=== PATIENT | female | born 2000 | race Two or more races ===

== ENCOUNTER 2022-11-04 13:28 | Emergency (ER) | payer SELFPAY ==
[2022-11-04] MEDS ORDERED: TDAP (DIPHTH,PERTUSS(ACELL),TET VAC) 0.5 ML VIAL IMVAC ONE (14:42)
[2022-11-04] MEDS ORDERED: LIDOCAINE 1% 20 ML MDV ONE (14:42)
[2022-11-04 14:43] LABS: Absolute Lymphocytes (CBC) 1.9 K/uL (0.7-4.9); Lymphocytes % 19.8 % (15.3-44.8); MCV 87.1 fL (80-100); MPV 8.3 fL (7.6-11.3); Platelets 361 thou/uL (152-406); RBC Red Blood Cell Count 5.62 M/uL (3.86-4.86)
[2022-11-04 14:45] LABS: Protime INR 0.92
[2022-11-04 15:00] LABS: Barbiturates NEGATIVE (NEGATIVE); Benzodiazepines NEGATIVE (NEGATIVE); Cocaine NEGATIVE (NEGATIVE); METHAMPHETAM NEGATIVE (NEGATIVE); Methadone NEGATIVE (NEGATIVE); Opiates NEGATIVE (NEGATIVE); Phencyclidine NEGATIVE (NEGATIVE); THC Cannibis NEGATIVE (NEGATIVE)
[2022-11-04 16:53] LABS: ALT/SGPT 26 U/L (13-56); AST/SGOT 17 U/L (15-37); Albumin 3.8 g/dL (3.4-5.0); Alkaline Phosphatase 104 U/L (45-117); BUN Blood Urea Nitrogen 11 mg/dL (7-18); Bicarbonate 22 mEq/L (21-32); Bilirubin Total 0.3 mg/dL (0.2-1.0); Glomerular Filtration Rate 84 ml/min (=/>90); Glucose Level 307 mg/dL (74-106); Potassium 3.7 mEq/L (3.5-5.1); Protein, Total 8.8 g/dL (6.4-8.2); Sodium Level 132 mEq/L (136-145)
[2022-11-04 16:54] LABS: Bilirubin Direct < 0.1 mg/dL (0-0.2); Bilirubin Indirect, Calculated ND mg/dL (0.2-0.8)
--- NOTE | 2022-11-04 18:07 | ER ---
Nurse's Notes [facility] Name: Sean Lazcano Age: 22 yrs Sex: Female : 2000 Arrival Date: 11/04/2022 Time: 13:28 Bed 15 Private MD: Diagnosis: Major depressive disorder, single episode, severe without psychotic features;Arm Laceration Left/ Open wound of forearm-s/p repair Presentation: 11/04 13:28 Chief complaint: EMS states: "Toned out for using a kitchen knife to cut her left mb9 forearm after getting into argument with sister. Pt has history of cutting self. Pt denies wanting to kill self.". 13:28 Coronavirus screen: Vaccine status: Patient reports being unvaccinated. Ebola Screen: [facility] No symptoms or risks identified at this time. Initial Sepsis Screen: Does the patient meet any 2 criteria? No. Patient's initial sepsis screen is negative. Does the patient have a suspected source of infection? No. Patient's initial sepsis screen is negative. Risk Assessment: Do you want to hurt yourself or someone else? Patient reports desire/thoughts of hurting themselves or someone else. Provider notified. Onset of symptoms was November 04, 2022. 13:28 Method Of Arrival: EMS: [facility] 13:28 Acuity: KRISTY 2 mb9 Triage Assessment: 13:49 General: Appears uncomfortable, Behavior is anxious, crying. Pain: Denies pain. Neuro: mb9 [place] Agitation-Sedation Scale (RASS): 0 - Alert and Calm Level of Consciousness is awake, alert, obeys commands, Oriented to person, place, time, situation, Appropriate for age. Cardiovascular: Patient's skin is warm and dry. Respiratory: Airway is patent Respiratory effort is even, unlabored, Respiratory pattern is regular, symmetrical. GI: No signs and/or symptoms were reported involving the gastrointestinal system. : No signs and/or symptoms were reported regarding the genitourinary system. Derm:. Musculoskeletal: Range of motion: intact in all extremities. Injury Description: Laceration sustained to left arm is full thickness, 2.6 to 7.5 cm long, bleeding moderately. 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 - Social history:: Smoking status: Patient denies any tobacco usage or history of. Screenin:48 [facility] ED Fall Risk Assessment (Adult) History of falling in the last 3 months, mb9 including since admission No falls in past 3 months (0 pts) Confusion or Disorientation No (0 pts) Intoxicated or Sedated No (0 pts) Impaired Gait No (0 pts) Mobility Assist Device Used No (0 pt) Altered Elimination No (0 pt) Score/Fall Risk Level 0 - 2 = Low Risk Oriented to surroundings, Maintained a safe environment, Educated pt \\T\\ family on fall prevention, incl call for assistance when getting out of bed. Abuse screen: Denies threats or abuse. Nutritional screening: No deficits noted. Tuberculosis screening: No symptoms or risk factors identified. Assessment: 13:48 Reassessment: [place] [facility] at bedside. mb9 14:28 Reassessment: Patient and/or family updated on plan of care and expected duration. Pain mb9 level reassessed. Patient is alert, oriented x 3, equal unlabored respirations, skin warm/dry/pink. [place] [facility] at bedside. SI precautions in place. 15:28 Reassessment: Patient and/or family updated on plan of care and expected duration. Pain mb9 level reassessed. Patient is alert, oriented x 3, equal unlabored respirations, skin warm/dry/pink. [place] [facility] at bedside. SI precautions in place. 15:31 Reassessment: Family at bedside. mb9 16:28 Reassessment: Patient and/or family updated on plan of care and expected duration. Pain mb9 level reassessed. Patient is alert, oriented x 3, equal unlabored respirations, skin warm/dry/pink. SI precautions in place. 16:42 Reassessment: [facility] at bedside. mb9 17:28 Reassessment: Patient and/or family updated on plan of care and expected duration. Pain mb9 level reassessed. Patient is alert, oriented x 3, equal unlabored respirations, skin warm/dry/pink. SI precautions in place. 18:28 Reassessment: Patient and/or family updated on plan of care and expected duration. Pain mb9 level reassessed. Patient is alert, oriented x 3, equal unlabored respirations, skin warm/dry/pink. SI precautions in place. 18:44 Reassessment: Nurse to nurse with Krista from [facility]. mb9 19:28 Reassessment: Patient and/or family updated on plan of care and expected duration. Pain mb9 level reassessed. Patient is alert, oriented x 3, equal unlabored respirations, skin warm/dry/pink. SI precautions in place. Sitter at bedside. 20:28 Reassessment: Patient and/or family updated on plan of care and expected duration. Pain mb9 level reassessed. Patient is alert, oriented x 3, equal unlabored respirations, skin warm/dry/pink. SI precautions in place. Sitter at bedside. 21:28 Reassessment: Patient and/or family updated on plan of care and expected duration. Pain mb9 level reassessed. Patient is alert, oriented x 3, equal unlabored respirations, skin warm/dry/pink. SI precautions in place. Sitter at bedside. 22:28 Reassessment: SI precautions in place. Sitter at bedside. mb9 23:28 Reassessment: Patient and/or family updated on plan of care and expected duration. Pain mb9 level reassessed. Patient is alert, oriented x 3, equal unlabored respirations, skin warm/dry/pink. SI precautions in place. Sitter at bedside. 11/05 07:00 Reassessment: Patient appears in no apparent distress at this time. Patient and/or hb family updated on plan of care and expected duration. Pain level reassessed. Patient is alert, oriented x 3, equal unlabored respirations, skin warm/dry/pink. Suicide precautions in place, sitter present. See paper chart for safety checks/observations. Awaiting acceptance at psych facility at this time. 09:00 Reassessment: Patient appears in no apparent distress at this time. No changes from previously documented assessment. Patient and/or family updated on plan of care and expected duration. Pain level reassessed. 11:00 Reassessment: Patient appears in no apparent distress at this time. No changes from previously documented assessment. Sitter remains in place. 12:42 Reassessment: Pt awake and alert, in no apparent distress, sitting upright eating lunch hb at this time. 14:35 Reassessment: Patient appears in no apparent distress at this time. Patient and/or hb family updated on plan of care and expected duration. Pain level reassessed. Vital Signs: 11/04 13:28 BP 141 / 98; Pulse 112; Resp 18; Temp 98.2; Pulse Ox 100% on R/A; Weight 83.91 kg; mb9 Height 5 ft. 7 in. ; Pain 0/10; 16:43 BP 138 / 74; Pulse 88; Resp 16; Pulse Ox 100% on R/A; mb9 11/05 11:50 BP 123 / 80; Pulse 91; Resp 16; Temp 97; Pulse Ox 99% ; Pain 0/10; sm8 11/04 13:28 Body Mass Index 28.97 (83.91 kg, 170.18 cm) [facility] 11/04 13:28 Pain Scale: Adult [facility] 11/05 11:50 Pain Scale: Adult 8 ED Course: 11/04 13:28 Patient arrived in ED. mb9 13:38 Cindy Parisi MD is Attending Physician. cp3 13:44 Fe Gonzalez, RN is Primary Nurse. mb9 13:44 Arm band placed on. mb9 13:46 Triage completed. mb9 13:49 Bed in low position. [place] [employer] at bedside. SI precautions in place. mb9 14:20 Urine collected: clean catch specimen, clear, EKG done, by ED staff, reviewed by Fe Gonzalez RN. Inserted saline lock: 22 gauge in right hand, using aseptic technique. 14:24 Acetaminophen Sent. mb9 14:24 Basic Metabolic Panel Sent. mb9 14:24 CBC with Diff Sent. mb9 14:24 ETOH Level Sent. mb9 14:24 Hepatic Function Sent. mb9 14:24 PT-INR Sent. mb9 14:24 Ptt, Activated Sent. mb9 15:00 Assist provider with laceration repair on left arm that was between 2.6 to 7.5 cm using mb9 autumn. Set up tray. Performed by Cindy Parisi MD Dressed with 4X4s, Patient tolerated well. 15:19 called the [facility] crisis line/ Mercedes will page out the screener sales solutions representative. eb 15:52 [facility] screener Nanette who is sales solutions representative says she will be here in 45 minutes according eb to her GPS. 16:42 Nanette from [facility] here to screen the patient. eb 17:40 faxed patient clinical information to [place] . eb 18:41 connected Jenn Rn from [facility] for with Jovita Wei for nurse to nurse. eb 11/05 15:14 IV discontinued, intact, bleeding controlled, No redness/swelling at site. Pressure me1 dressing applied. Administered Medications: 11/04 14:37 Drug: Tetanus Immune Globulin IM 250 units Route: IM; Site: left deltoid; mb9 14:37 Follow up: [id number] EXP: 04/13/23 GLAXOSMITHKLINE mb9 14:37 Drug: Bacitracin Topical Ointment (500 unit/g) 1 application Route: Topical; Site: left mb9 forearm; 14:59 Drug: Lidocaine Infiltration (1 %) 15 ml Volume: 20 ml; Route: Infiltration; mb9 Medication: 13:48 VIS not applicable for this client. mb9 Intake: Outcome: 18:07 ER care complete, transfer ordered by . enoc 11/05 15:14 Patient left the ED. me1 Signatures: Cindy Parisi MD MD cp3 Danii Chappell, RN RN Mara Zayas Mary Beth, RN RN mb9 Brianna Blanchard 8 Janice Lewis RN RN me1 Corrections: (The following items were deleted from the chart) 11/04 15:46 13:36 Patient arrived in ED. brett 9 16:42 15:52 [facility] screener sales solutions representative says she will be here in 45 minutes according to her eb GPS eb
--- NOTE | 2022-11-04 18:07 | EDPHYS ---
Physician Documentation [facility] Name: Sean Lazcano Age: 22 yrs Sex: Female : 2000 Arrival Date: 11/04/2022 Time: 13:28 Bed 15 Private MD: ED Physician Cindy Parisi HPI: 11/04 13:38 This 22 yrs old Female presents to ER via Unassigned with complaints of Self-harm and cp3 left wrist laceration. 13:38 The patient is a 22-year-old female with a history of diabetes on oral hypoglycemics cp3 who presents to the ED after cutting her left forearm in 2 locations with a kitchen knife after getting into an argument with her sister. The patient was brought by EMS endorse that there was bleeding on scene which is resolved with wound care. The patient denies homicidal ideations or suicidal ideations but does endorses that she has resorted to cutting in response to stressful situations. The patient endorses she did not wish to by cutting herself she did not think that knife was then a cut so deep. Patient denies hearing voices or seeing external stimuli. Patient endorses she has an undiagnosed history of anxiety depression for which she takes no medications.. 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 - Social history:: Smoking status: Patient denies any tobacco usage or history of. ROS: 13:38 Constitutional: Negative for fever, chills, and weight loss, Eyes: Negative for injury, cp3 pain, redness, and discharge, ENT: Negative for injury, pain, and discharge, Neck: Negative for injury, pain, and swelling, Cardiovascular: Negative for chest pain, palpitations, and edema, Respiratory: Negative for shortness of breath, cough, wheezing, and pleuritic chest pain, Abdomen/GI: Negative for abdominal pain, nausea, vomiting, diarrhea, and constipation, Back: Negative for injury and pain, : Negative for injury, bleeding, discharge, and swelling, MS/Extremity: Negative for injury and deformity, Neuro: Negative for headache, weakness, numbness, tingling, and seizure, Allergy/Immunology: Negative for hives, rash, and allergies, Endocrine: Negative for neck swelling, polydipsia, polyuria, polyphagia, and marked weight changes, Hematologic/Lymphatic: Negative for swollen nodes, abnormal bleeding, and unusual bruising. 13:38 Skin: Positive for laceration(s). 13:38 Psych: Positive for anxiety, depression, Self-harm in the form of cutting. Exam: 13:38 Constitutional: This is a well developed, well nourished patient who is awake, alert, cp3 and in no acute distress. Head/Face: Normocephalic, atraumatic. Eyes: Pupils equal round and reactive to light, extra-ocular motions intact. Lids and lashes normal. Conjunctiva and sclera are non-icteric and not injected. Cornea within normal limits. Periorbital areas with no swelling, redness, or edema. ENT: Nares patent. No nasal discharge, no septal abnormalities noted. Tympanic membranes are normal and external auditory canals are clear. Oropharynx with no redness, swelling, or masses, exudates, or evidence of obstruction, uvula midline. Mucous membranes moist. Neck: Trachea midline, no thyromegaly or masses palpated, and no cervical lymphadenopathy. Supple, full range of motion without nuchal rigidity, or vertebral point tenderness. No Meningismus. Chest/axilla: Normal chest wall appearance and motion. Nontender with no deformity. No lesions are appreciated. Cardiovascular: Regular rate and rhythm with a normal S1 and S2. No gallops, murmurs, or rubs. Normal PMI, no JVD. No pulse deficits. Respiratory: Lungs have equal breath sounds bilaterally, clear to auscultation and percussion. No rales, rhonchi or wheezes noted. No increased work of breathing, no retractions or nasal flaring. Abdomen/GI: Soft, non-tender, with normal bowel sounds. No distension or tympany. No guarding or rebound. No evidence of tenderness throughout. Back: No spinal tenderness. No costovertebral tenderness. Full range of motion. MS/ Extremity: Pulses equal, no cyanosis. Neurovascular intact. Full, normal range of motion. Neuro: Awake and alert, GCS 15, oriented to person, place, time, and situation. Cranial nerves II-XII grossly intact. Motor strength 5/5 in all extremities. Sensory grossly intact. Cerebellar exam normal. Normal gait. Psych: Awake, alert, with orientation to person, place and time. Behavior, mood, and affect are within normal limits. 13:38 Skin: Patient with a 6 cm laceration to the proximal forearm with a depth chest below the dermal tissue and patient with a second 4 cm laceration distal to the second laceration but above the wrist that also is just below the dermis. Patient with minimal bleeding at this time that has responded to direct pressure. 13:38 Psych: Behavior/mood is pleasant, cooperative, Patient is here tearful with labile mood and appears sad. Patient denies suicidal ideations or homicidal ideations. Vital Signs: 13:28 BP 141 / 98; Pulse 112; Resp 18; Temp 98.2; Pulse Ox 100% on R/A; Weight 83.91 kg; 9 Height 5 ft. 7 in. ; Pain 0/10; 16:43 BP 138 / 74; Pulse 88; Resp 16; Pulse Ox 100% on R/A; [facility] 11/05 11:50 BP 123 / 80; Pulse 91; Resp 16; Temp 97; Pulse Ox 99% ; Pain 0/10; sm8 11/04 13:28 Body Mass Index 28.97 (83.91 kg, 170.18 cm) [facility] 11/04 13:28 Pain Scale: Adult [facility] 11/05 11:50 Pain Scale: Adult 8 Laceration: 11/04 15:12 Wound Repair of 6cm ( 2.4in ) subcutaneous laceration to palmar aspect of left forearm. cp3 Distal neuro/vascular/tendon intact. Anesthesia: Wound infiltrated with 15 mls of 1% lidocaine, Wound infiltrated with 1% lidocaine, Local anesthetic administered with 1% lidocaine. Wound prep: Extensive cleansing by nurse, Wound irrigation with saline by nurse, Copious irrigation. Skin closed with 20 1-0 Maxine using staple gun. Dressed with Bacitracin. Patient tolerated well. 15:12 Wound Repair of 3cm ( 1.2in ) subcutaneous laceration to palmar aspect of left forearm. cp3 Linear shaped.. Distal neuro/vascular/tendon intact. Anesthesia: Wound infiltrated with 5 mls of 1% lidocaine. Wound prep: Moderate cleansing with hibiclenz by nurse, Extensive cleansing, Wound irrigation with saline by nurse. Skin closed with 9 1-0 Maxine using staple gun. Dressed with Bacitracin, Kerlix, pressure dressing. Patient tolerated well. MDM: 13:38 Differential Diagnosis The differential diagnosis includes self-harm, major depression, 3 laceration. Data reviewed: vital signs, nurses notes, EMS record, Patient under JOSE ENRIQUE by her Madan VALENTIN. Consideration of Admission/Observation Patient was admitted/placed on observation. Psych observation until cleared by mental health assessment team. Historians other than the Patient: EMS: See HPI. 14:17 Patient medically screened. [facility] 15:12 I considered the following discharge prescriptions or medication management in the [facility] emergency department . Independent interpretation of the following test(s) in the Emergency Department EKG: See my EKG interpretation above. Response to treatment: the patient's symptoms have mildly improved after treatment. 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 ED course: Lacerations repaired.. ED course: EKG interpreted by me at 1435: Normal sinus rhythm, rate 89, no evidence of acute ND QTc within normal limits. 15:16 ED course: Patient is medically clear for mental health evaluation. [facility] 18:07 Management of patient was discussed with the following: Behavioral Health Provider: enoc mata with [facility] health services. Patient recommended for inpatient mental health observation. Transfer started to [facility]. 20:00 ED course: Patient and patient's mother updated on care plan and transfer for [facility] psychiatric inpatient evaluation . 11/04 14:08 Order name: Acetaminophen; Complete Time: 17:11 [facility] 11/04 14:08 Order name: Basic Metabolic Panel; Complete Time: 17:11 3 11/04 14:08 Order name: CBC with Diff; Complete Time: 14:55 [facility] 11/04 14:08 Order name: ETOH Level; Complete Time: 14:55 [facility] 11/04 14:08 Order name: Hepatic Function; Complete Time: 17:11 3 11/04 14:08 Order name: PT-INR; Complete Time: 14:55 3 11/04 14:08 Order name: Ptt, Activated; Complete Time: 14:55 [facility] 11/04 14:08 Order name: Salicylate; Complete Time: 15:16 3 11/04 14:08 Order name: Urine Drug Screen; Complete Time: 15:16 3 11/04 14:08 Order name: EKG; Complete Time: 14:09 3 11/04 14:43 Order name: Diet Finger Food; Complete Time: 14:44 mb9 11/05 11:07 Order name: Diet Finger Food; Complete Time: 11:08 3 11/04 14:08 Order name: EKG - Nurse/Tech; Complete Time: 14:37 3 11/04 14:08 Order name: IV Saline Lock; Complete Time: 14:24 3 11/04 14:08 Order name: Labs collected and sent; Complete Time: 14:24 3 11/04 14:08 Order name: Suicide Screening ([place]); Complete Time: 14:10 3 11/04 14:10 Order name: Suture Tray Setup; Complete Time: 14:37 3 11/04 14:10 Order name: Misc. Order: staple gun; Complete Time: 14:37 cp3 Administered Medications: 14:37 Drug: Tetanus Immune Globulin IM 250 units Route: IM; Site: left deltoid; mb9 14:37 Follow up: [id number] EXP: 04/13/23 GLAXOSMITHKLINE 9 14:37 Drug: Bacitracin Topical Ointment (500 unit/g) 1 application Route: Topical; Site: left mb9 forearm; 14:59 Drug: Lidocaine Infiltration (1 %) 15 ml Volume: 20 ml; Route: Infiltration; mb9 Disposition: 13:38 Chart complete. cp3 Disposition Summary: 11/04/22 18:07 Transfer Ordered Transfer Location: [facility] cp3 Reason: Higher level of care cp3 Condition: Stable cp3 Problem: new cp3 Symptoms: are unchanged cp3 Accepting Physician: Mental Health Facility(11/05/22 15:14) me1 Diagnosis - Major depressive disorder, single episode, severe without psychotic features cp3 - Arm Laceration Left/ Open wound of forearm - s/p repair cp3 Forms: - Medication Reconciliation Form cp3 - SBAR form cp3 Signatures: Dispatcher [employer] Cindy Ivey MD MD cp3 Fe Gonzalez RN RN mb9 Janice Lewis RN RN me1 Corrections: (The following items were deleted from the chart) 08/12 15:14 08 18:07 [facility] cp3 me1
[2022-11-05 15:34] VITALS: BP 123/80; TEMP 97; O2SAT 99
--- NOTE | 2022-11-06 15:32 | EKG ---
Test Date: 2022-11-04 Test Time: 14:35:30 Computer Aided Design Designer: ROCÍO MEASUREMENT RESULTS: Intervals: Rate: 89 DC: 158 QRSD: 92 QT: 374 QTc: 455 [place]: P: 51 DC: 158 QRS: 56 T: 21 INTERPRETIVE STATEMENTS: Normal sinus rhythm Normal ECG No previous ECG available for comparison Electronically Signed On 11-06-22 15:30:17 CDT by Yong Pugh
== END 2022-11-05 15:14 ==
LOC: ER 13:28
PROC: 0HQEXZZ Repair Left Lower Arm Skin, External Approach (ICD-10-PCS; principal; 2022-11-05)
DX: F32.2 Major depressive disorder, single episode, severe without psychotic features (principal); S51.812A Laceration without foreign body of left forearm, initial encounter; X78.1XXA Intentional self-harm by knife, initial encounter; E11.9 Type 2 diabetes mellitus without complications
CPT/HCPCS: 36415; 80048; 80076; 80143; 80179; 80307; 82077; 85025; 85610; 85730; 90471; 93005; 99285; J2001

== ENCOUNTER 2022-11-18 11:08 | Emergency (ER) | payer SELFPAY ==
--- NOTE | 2022-11-18 11:34 | EDPHYS ---
Physician Documentation [facility] Name: Sean Lazcano Age: 22 yrs Sex: Female : 2000 Arrival Date: 11/18/2022 Time: 11:08 Bed 12 Private MD: ED Physician Devon Moore HPI: 11/18 11:27 This 22 yrs old [place] Female presents to ER via Unassigned with complaints of Staple rn Removal. 11:27 The patient has autumn on the left arm. rn 11:27 Previous treatment: The patient was initially treated 13 day(s) ago, the care was rn rendered at [facility]. Sutures/autumn progress: The patient's wound displays. Sutures/autumn progress:. The patient has not experienced similar symptoms in the past. Pt presents for staple removal, autumn placed 13 days ago, self-inflicted. Pt also reports does not have prescriptions stated in her discharge paperwork. Otherwise no acute complaints. . Historical: - Allergies: 11:28 No Known Allergies; hb - PMHx: 11:28 Anxiety; diabetes mellitus; depressive disorder; hb - PSHx: 11:28 section; hb - Immunization history:: Adult Immunizations up to date. - Social history:: Smoking status: Patient denies any tobacco usage or history of. - Family history:: not pertinent. - Hospitalizations: : No recent hospitalization is reported. ROS: 11:27 Constitutional: Negative for fever, chills, and weight loss, Skin: + stapled wounds to rn left forearm Exam: 11:27 Constitutional: This is a well developed, well nourished patient who is awake, alert, rn and in no acute distress. Skin: + one wound appears well healed, the longer more proximal wound not well healed and wound edges not completely healed. No drainage. No dehiscence. Vital Signs: 11:15 Pulse 68; Resp 20; Pulse Ox 100% on R/A; Pain 0/10; hb 11:15 Pain Scale: Adult hb MDM: 11:13 Patient medically screened. rn 11:27 Data reviewed: vital signs, nurses notes, and as a result, I will discharge patient. rn Counseling: I had a detailed discussion with the patient and/or guardian regarding the historical points, exam findings, and any diagnostic results supporting the discharge/admit diagnosis, the need for outpatient follow up, to return to the emergency department if symptoms worsen or persist or if there are any questions or concerns that arise at home. Special discussion: I discussed with the patient/guardian in detail that at this point there is no indication for admission to the hospital. It is understood, however, that if the symptoms persist or worsen the patient needs to return immediately for re-evaluation. ED course: One wound appears well healed, the other needs more time, gave patient option of removing autumn from one wound and coming back for other, patient and family member choose to go home and return for staple removal this next week. Will fill her prescriptions that she was supposed to get at discharge from psychiatric facility. . Administered Medications: No medications were administered Disposition Summary: 11/18/22 11:33 Discharge Ordered Location: Home rn Problem: new rn Symptoms: have improved rn Condition: Stable rn Diagnosis - Encounter for staple removal - not ready for removal rn Followup: rn - With: Emergency Department - When: 5 - 6 days - Reason: Recheck today's complaints, Staple/Suture removal, Re-evaluation by your physician Discharge Instructions: - Discharge Summary Sheet rn - Sutures, [place], or Adhesive Wound Closure rn Forms: - Medication Reconciliation Form rn - Thank You Letter rn - Antibiotic quality assurance intern - Prescription Opioid Use rn - Patient Portal Instructions rn - Leadership Thank You Letter rn Prescriptions: - Metformin 1,000 mg Oral Tablet - take 1 tablet by ORAL route every 12 hours with morning and evening meals; 60 rn tablet; Refills: 0, Product Selection Permitted - Fluoxetine 20 mg Oral Tablet - take 1 tablet by ORAL route once daily in the morning; 30 tablet; Refills: 0, rn Product Selection Permitted - Bactrim DS 800-160 mg Oral Tablet - take 1 tablet by ORAL route every 12 hours for 10 days; 20 tablet; Refills: 0, rn Product Selection Permitted Signatures: Devon Moore MD MD rn Baxter, Heather, RN RN Corrections: (The following items were deleted from the chart) 11:30 11:27 Constitutional: Negative for fever, chills, and weight loss, Skin: + one wound rn appears well healed, the longer more proximal wound not well healed and wound edges not completely healed. No drainage. No dehiscence. rn
--- NOTE | 2022-11-18 11:34 | ER ---
Nurse's Notes [facility] Name: Sean Lazcano Age: 22 yrs Sex: Female : 2000 Arrival Date: 11/18/2022 Time: 11:08 Bed 12 Private MD: Diagnosis: Encounter for staple removal - not ready for removal Presentation: 11/18 11:15 Chief complaint: Received autumn to left forearm 11/04,. here for removal. hb 11:15 Coronavirus screen: At this time, the client does not indicate any symptoms associated hb with coronavirus-19. Ebola Screen: No symptoms or risks identified at this time. Initial Sepsis Screen: Does the patient meet any 2 criteria? No. Patient's initial sepsis screen is negative. Does the patient have a suspected source of infection? No. Patient's initial sepsis screen is negative. Risk Assessment: Do you want to hurt yourself or someone else? Patient reports no desire to harm self or others. Onset of symptoms was November 18, 2022. 11:15 Method Of Arrival: Ambulatory hb 11:15 Acuity: KRISTY 4 hb Triage Assessment: 11:28 General: Appears in no apparent distress. Behavior is calm, cooperative. Pain: Denies hb pain. Neuro: Level of Consciousness is awake, alert, obeys commands, Oriented to person, place, time, situation. Cardiovascular: Patient's skin is warm and dry. Respiratory: Respiratory effort is even, unlabored, Respiratory pattern is regular, symmetrical. Historical: - Allergies: 11:28 No Known Allergies; hb - PMHx: 11:28 Anxiety; diabetes mellitus; depressive disorder; hb - PSHx: 11:28 section; hb - Immunization history:: Adult Immunizations up to date. - Social history:: Smoking status: Patient denies any tobacco usage or history of. - Family history:: not pertinent. - Hospitalizations: : No recent hospitalization is reported. Screenin:29 [facility] ED Fall Risk Assessment (Adult) Score/Fall Risk Level 0 - 2 = Low Risk hb Oriented to surroundings, Maintained a safe environment. Abuse screen: Denies threats or abuse. Denies injuries from another. Nutritional screening: No deficits noted. Tuberculosis screening: No symptoms or risk factors identified. Assessment: :29 General: See triage assessment. hb Vital Signs: 11:15 Pulse 68; Resp 20; Pulse Ox 100% on R/A; Pain 0/10; hb 11:15 Pain Scale: Adult hb ED Course: 11:10 Patient arrived in ED. mr 11:12 Devon Moore MD is Attending Physician. rn 11:28 Triage completed. hb 11:29 Arm band placed on. hb 11:29 Patient has correct armband on for positive identification. Provided Education on: . hb 11:29 No provider procedures requiring assistance completed. Patient did not have IV access hb during this emergency room visit. Administered Medications: No medications were administered Medication: 11:29 VIS not applicable for this client. hb Outcome: 11:33 Discharge ordered by . rn 11:42 Patient left the ED. hb Signatures: Fe Hay mr Devon Moore MD MD rn Baxter, Heather, RN RN hb
[2022-11-18 11:47] VITALS: O2SAT 100
== END 2022-11-18 11:42 | disposition home or self-care (01) ==
LOC: ER 11:08
DX: Z48.02 Encounter for removal of sutures (principal)
CPT/HCPCS: 99281

== ENCOUNTER 2022-11-28 19:17 | Emergency (ER) | payer SELFPAY ==
--- NOTE | 2022-11-28 20:22 | ER ---
Nurse's Notes [facility] Name: Sean Lazcano Age: 22 yrs Sex: Female : 2000 Arrival Date: 11/28/2022 Time: 19:17 Bed 12 [facility] MD: Diagnosis: Encounter for removal of sutures Presentation: 11/28 19:25 Chief complaint: Patient states: autumn placed on 11/05. came back on 11/18 but they lg3 were not ready for removal. autumn are still in place. Coronavirus screen: Client denies travel out of the [place] in the last 14 days. At this time, the client does not indicate any symptoms associated with coronavirus-19. Ebola Screen: No symptoms or risks identified at this time. Initial Sepsis Screen: Does the patient meet any 2 criteria? No. Patient's initial sepsis screen is negative. Does the patient have a suspected source of infection? No. Patient's initial sepsis screen is negative. Risk Assessment: Do you want to hurt yourself or someone else? Patient reports no desire to harm self or others. Onset of symptoms is unknown. 19:25 Method Of Arrival: Ambulatory lg3 19:25 Acuity: KRISTY 4 lg3 Triage Assessment: 19:27 General: Appears in no apparent distress. comfortable, Behavior is calm, cooperative. lg3 Pain: Complains of pain in left arm. EENT: No deficits noted. No signs and/or symptoms were reported regarding the EENT system. Neuro: No deficits noted. [place] Agitation-Sedation Scale (RASS): 0 - Alert and Calm Level of Consciousness is awake, alert, obeys commands, Oriented to person, place, time, situation. Cardiovascular: No deficits noted. Denies chest pain, shortness of breath, Capillary refill < 3 seconds Clubbing of nail beds is absent JVD is absent Patient's skin is warm and dry. Respiratory: No deficits noted. Airway is patent Respiratory effort is even, unlabored, Respiratory pattern is regular, symmetrical. GI: No deficits noted. No signs and/or symptoms were reported involving the gastrointestinal system. : No deficits noted. No signs and/or symptoms were reported regarding the genitourinary system. Derm: Skin is intact, is healthy with good turgor, Skin is dry, Skin is normal, Skin temperature is warm Wound noted palmar aspect of left forearm two linear lacerations to left forearm with autumn intact Reports pain. Musculoskeletal: No deficits noted. No signs and/or symptoms reported regarding the musculoskeletal system. Circulation, motion, and sensation intact. Range of motion: intact in all extremities. 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 - Social history:: Smoking status: Patient reports the use of cigarette tobacco products, smokes one pack cigarettes per day. Reported history of juuling and/or vaping. Patient uses alcohol, occasionally. Screenin:15 [facility] ED Fall Risk Assessment (Adult) History of falling in the last 3 months, mb9 including since admission No falls in past 3 months (0 pts) Confusion or Disorientation No (0 pts) Intoxicated or Sedated No (0 pts) Impaired Gait No (0 pts) Mobility Assist Device Used No (0 pt) Altered Elimination No (0 pt) Score/Fall Risk Level 0 - 2 = Low Risk Oriented to surroundings, Maintained a safe environment, Educated pt \T\ family on fall prevention, incl call for assistance when getting out of bed. Abuse screen: Denies threats or abuse. Nutritional screening: No deficits noted. Tuberculosis screening: No symptoms or risk factors identified. Assessment: 20:14 Reassessment: No changes from previously documented assessment. Patient and/or family mb9 updated on plan of care and expected duration. Pain level reassessed. Patient is alert, oriented x 3, equal unlabored respirations, skin warm/dry/pink. Vital Signs: 19:25 BP 131 / 81; Pulse 89; Resp 17 S; Temp 98.4(O); Pulse Ox 100% on R/A; Weight 86.18 kg lg3 (R); Height 5 ft. 8 in. (R); 19:25 Body Mass Index 28.89 (86.18 kg, 172.72 cm) 3 ED Course: 19:20 Patient arrived in ED. mr 19:26 Josue Blackburn PA is PHCP. cp 19:26 Josue Hamilton MD is Attending Physician. cp 19:27 Triage completed. lg3 19:27 Arm band placed on right wrist. lg3 20:15 Bed in low position. Call light in reach. Side rails up X 1. Client placed on mb9 continuous cardiac and pulse oximetry monitoring. NIBP monitoring applied. 20:15 No provider procedures requiring assistance completed. mb9 20:25 Fe Gonzalez, RN is Primary Nurse. mb9 20:25 Patient did not have IV access during this emergency room visit. mb9 Administered Medications: 20:18 Drug: Cephalexin PO 500 mg Route: PO; mb9 20:24 Follow up: Response: No adverse reaction mb9 Medication: 20:15 VIS not applicable for this client. mb9 Outcome: 20:21 Discharge ordered by MD. cp 20:28 Discharged to home ambulatory. mb9 20:28 Condition: stable 20:28 Discharge instructions given to patient, Instructed on discharge instructions, follow up and referral plans. Demonstrated understanding of instructions, follow-up care, medications, Prescriptions given X 1. 20:28 Patient left the ED. mb9 Signatures: Satnam Fe fontana Josue Blackburn PA PA cp Eleonora Villafana, RN RN lg3 Fe Gonzalez, VANESSA RN mb9
--- NOTE | 2022-11-28 20:22 | EDPHYS ---
Physician Documentation [facility] Name: Sean Lazcano Age: 22 yrs Sex: Female : 2000 Arrival Date: 11/28/2022 Time: 19:17 Bed 12 Private MD: Josue Garrido HPI: 11/28 19:35 This 22 yrs old [place] Female presents to ER via Ambulatory with complaints of Staple cp Removal. 19:35 The patient has autumn on the palmar aspect of left forearm. cp 19:35 Previous treatment: The patient was initially treated on November 04, 2022, the care was cp rendered at [facility], Treatment type: The patient's original treatment included autumn, Previous recheck: was rechecked on November 18, 2022. 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 - Social history:: Smoking status: Patient reports the use of cigarette tobacco products, smokes one pack cigarettes per day. Reported history of juuling and/or vaping. Patient uses alcohol, occasionally. ROS: 19:38 All other systems are negative. cp Exam: 19:40 Constitutional: The patient appears in no acute distress, alert, awake, comfortable, cp non-toxic, well developed, well nourished. 19:40 Skin: Wound recheck: Staple laceration closure: 2 separate repaired lacerations noted cp volar side of left forearm with distal laceration of left forearm appearing well healed with no dehiscence, proximal and larger laceration appears moderated dehiscence, scant drainage expressed and mild erythema. Vital Signs: 19:25 BP 131 / 81; Pulse 89; Resp 17 S; Temp 98.4(O); Pulse Ox 100% on R/A; Weight 86.18 kg lg3 (R); Height 5 ft. 8 in. (R); 19:25 Body Mass Index 28.89 (86.18 kg, 172.72 cm) lg3 Procedures: 20:18 Suture/Staple removal: Removed 29 autumn, from palmar aspect of left forearm, site cp appears reddened, gaping, dressed with Bactroban, Kerlix. Patient tolerated well. MDM: 19:32 Patient medically screened. [facility] 20:20 Data reviewed: vital signs, nurses notes, and as a result, I will discharge patient. 20:20 Care significantly affected by the following chronic conditions: Diabetes. Response to cp treatment: improved. 11/28 20:17 Order name: Wound dressing; Complete Time: 20:18 cp Administered Medications: 20:18 Drug: Cephalexin PO 500 mg Route: PO; mb9 20:24 Follow up: Response: No adverse reaction mb9 Disposition Summary: 11/28/22 20:21 Discharge Ordered Location: Home cp Problem: new cp Symptoms: have improved cp Condition: Stable cp Diagnosis - Encounter for removal of sutures cp Followup: cp - With: Private Physician - When: 2 - 3 days - Reason: Worsening of condition Discharge Instructions: - Suture Removal, Care After cp - Discharge Summary Sheet mb9 Forms: - Medication Reconciliation Form cp - Thank You Letter cp - Antibiotic Education cp - Prescription Opioid Use cp - Patient Portal Instructions cp - Leadership Thank You Letter cp - Work release form mb9 Prescriptions: - Cephalexin 500 mg Oral Capsule - take 1 capsule by ORAL route every 6 hours for 10 days; 40 capsule; Refills: 0, cp Product Selection Permitted Signatures: Josue Hamilton MD MD cha Page, Corey, PA PA cp Eleonora Villafana RN RN 3 Fe Gonzalez RN RN mb9 Corrections: (The following items were deleted from the chart) 11/29 15:35 15:34 All other systems are negative, cp cp
[2022-11-28] MEDS ORDERED: CEPHALEXIN 250 MG CAP ONE (20:31)
[2022-11-28 20:56] VITALS: BP 131/81; TEMP 98.4; O2SAT 100
== END 2022-11-28 20:28 | disposition home or self-care (01) ==
LOC: ER 19:17
DX: Z48.02 Encounter for removal of sutures (principal)
CPT/HCPCS: 99283